=== PATIENT | female | born 1940 | race Native Hawaiian/Other Pacific Islander ===

== ENCOUNTER 2018-11-04 13:09 | Outpatient (CLI) | payer MEDICARE, BC | END 2018-11-04 13:10 | disposition home or self-care (01) | LOC: RAD 13:09 | DX: C79.51 Secondary malignant neoplasm of bone (principal) ==

== ENCOUNTER 2018-11-16 05:55 | Outpatient (CLI) | payer MEDICARE, BC | END 2018-11-16 05:56 | disposition home or self-care (01) | LOC: PET-BROA 05:55 | DX: C79.51 Secondary malignant neoplasm of bone (principal) ==

== ENCOUNTER 2018-11-24 13:03 | Outpatient (CLI) | payer MEDICARE, BC | END 2018-11-24 13:04 | disposition home or self-care (01) | LOC: RAD 13:03 ==